=== PATIENT | male | born 1975 | race Caucasian/White ===

== ENCOUNTER 2021-11-06 16:39 | Observation (INO) | payer OTHER ==
--- OUTSIDE RECORDS SUMMARY | 2021-11-06 16:42 | XMS REPORT | Continuity of Care Document ---
:1975 Author Organization [facility] Address [address] [place] [address] Care Team Providers Name Role Phone ANNY JONES Attending Clinician Unavailable Lab, Adc Fam Pob I Attending Clinician Unavailable Anny Jones PA-C Attending Clinician Doctor Unassigned, [place] Attending Clinician Unavailable Payers Payer Name Policy Type Policy Number Effective Date Expiration Date Carmine HAMM II [id number] 2020 00:00:00 Problems This patient has no known problems. Allergies, Adverse Reactions, Alerts Allergy Allergy Status Severity Reaction(s) Onset Inactive Treating Comm ents Source Name Type Date Date Clinician NO KNOWN Drug Active Univers ALLERGIE Class ity of S [facility] Social History Social Habit Start Date Stop Date Quantity Comments Source History of Chews Tobacco University of tobacco use [facility] Sex Assigned At Universit y of [facility] Exposure to Yes [facility] SARS-CoV-2 [facility] (event) [place] Tobacco use and 2016-08-04 2016-08-04 Former user Universi ty of exposure 00:00:00 00:00:00 [facility] Alcohol intake 2016-08-04 2016-08-04 Current University 00:00:00 00:00:00 non-drinker of [facility] alcohol [place] (finding) Smoking Status Start Date Stop Date Source Never smoker [facility] Medications Ordered Filled Start Stop Current Ordering Indication Dosage Frequency Signature Comments Components Source Medication Medication Date Date Medication? Clinician (SIG) Name Name metoprolol Yes 50mg Take 50 mg U nivers tartrate 50 08-04 by mouth 2 it y of mg tablet 15:24: (two) [place] 43 times Medical daily. Branch CETIRIZINE Yes Take by Univ ers HCL (ZYRTEC 08-04 mouth ity of ORAL) 15:24: daily. [place] [address] Medical Branch ESOMEPRAZOL Yes Take by Uni vers E MAGNESIUM 6-28 mouth ity of (NEXIUM 15:24: daily. [place] ORAL) 43 Indication Medical s: OTC Branch [place]-3 Yes Take by Univers Fatty Acids 6-28 mouth ity of (FISH OIL) 15:24: daily. [place] 500 mg Cap 43 Medical Branch IBUPROFEN Yes Take by Unive rs (ADVIL 6-28 mouth as ity of ORAL) 15:24: needed. [place] [address] Medical Branch metoprolol Yes 50mg Take 50 mg U nivers tartrate 50 6-28 by mouth 2 it y of mg tablet 15:24: (two) [place] [address] times Medical daily. Branch CETIRIZINE Yes Take by Univ ers HCL (ZYRTEC 6-28 mouth ity of ORAL) 15:24: daily. [place] [address] Medical Branch ESOMEPRAZOL Yes Take by Uni vers E MAGNESIUM 6-28 mouth ity of (NEXIUM 15:24: daily. [place] ORAL) 43 Indication Medical s: OTC Branch [place]-3 Yes Take by Univers Fatty Acids 6-28 mouth ity of (FISH OIL) 15:24: daily. [place] 500 mg Cap Medical Branch IBUPROFEN Yes Take by Unive rs (ADVIL 6-28 mouth as ity of ORAL) 15:24: needed. [place] [address] Medical Branch aspirin 325 Yes 325mg Take 1 Uni vers mg tablet 6-07 tablet by ity o f 00:00: mouth [place] 00 daily. Medical Branch aspirin 325 Yes 325mg Take 1 Uni vers mg tablet 6-07 tablet by ity o f 00:00: mouth [place] 00 daily. Medical Branch Procedures This patient has no known procedures. Encounters Start End Encounter Admission Attending Care Care Encounter Source Date/Time Date/Time Type Type Clinicians Facility Department ID 2020-03-19 2020-03-19 Outpatient [facility] [id number] Univers 13:40:00 13:40:00 [id number] ity [facility]ly [facility] 2020-03-19 2020-03-19 Outpatient Phill JONES [facility] [id number] Univers 13:40:00 13:40:00 ANNY ity [facility]ly [facility] 2020-03-19 2020-03-19 Laboratory Lab, Adc Fam Pob I [facility] [id number] Univers 12:55:26 13:15:26 Only Anny Jones [facility] [id number] ity of [place] [id number] Epifanio as Professio [phone] [facility] [address] Branch [address] 2020-03-19 2020-03-19 Letter Doctor ANNY [id number] [facility] 00:00:00 00:00:00 (Out) Unassigned, [place] [id number] ity of [place] [facility] [id number] Epifanio as [phone] [place] [address] Branch Results This patient has no known results.
[2021-11-06] MEDS ORDERED: METOPROLOL TARTRATE 5 MG/5 ML INJ IV ONE (16:59)
[2021-11-06 17:24] LABS: Potassium 3.3 mmol/L (3.5-5.1); Troponin High Sensitivity 11.3 pg/mL (<58.9)
[2021-11-06 17:29] LABS: Absolute Lymphocytes (CBC) 3.2 K/uL (0.7-4.9); Hematocrit 48.2 % (39.6-49.0); Lymphocytes % 27.7 % (15.3-44.8); MPV 8.7 fL (7.6-11.3); RBC Red Blood Cell Count 4.96 M/uL (4.33-5.43)
--- NOTE | 2021-11-06 17:38 | RAD REPORT ---
EXAM DESCRIPTION: RAD - Chest Single View - 11/06/2021 5:30 pm CLINICAL HISTORY: PALPITATIONS COMPARISON: No comparisons FINDINGS: Lines: None. Lungs: No evidence of edema or pneumonia. Pleural: No significant pleural effusions or pneumothorax. Cardiac: The heart size is within normal limits. Mediastinum: Within normal limits. Bones: No acute fractures. Other: None IMPRESSION: No acute cardiopulmonary disease.
[2021-11-06] MEDS ORDERED: METOPROLOL TAR 50 MG TAB ONE (17:41)
[2021-11-06] MEDS ORDERED: ENOXAPARIN 100 MG/ML SYR SQ ONE (18:01)
--- NOTE | 2021-11-06 18:06 | EDPHYS ---
Physician Documentation [facility] Name: Alfredito Ramos Age: 46 yrs Sex: Male : 1975 Arrival Date: 11/06/2021 Time: 16:40 Bed 8 Private MD: Aron Campbell E ED Physician Zoran Méndez HPI: 11/06 18:58 This 46 yrs old Male presents to ER via Wheelchair with complaints of Dizziness, kdr Shortness Of Breath, afib. 18:58 Patient has a history of atrial fibrillation which he normally controls with 25 mg of kdr metoprolol daily. This morning when he awoke he noted the palpitations and that they continued through the day. Previously he has been able to resolve the palpitations with various exercises or activities. Unfortunately today that was not the case and so he presented here this afternoon and atrial fibrillation with rapid ventricular response. In general the patient has experienced this many times before and was not in some respects not concerned about it however he was started to have some episodes of dizziness today which was unusual.. Onset: The symptoms/episode began/occurred this morning, He noted the palpitations and irregular heart rate when he awoke this morning. Severity of symptoms: At their worst the symptoms were mild moderate in the emergency department the symptoms are unchanged. The patient has experienced similar episodes in the past, multiple times. The patient has not recently seen a physician. Historical: - Allergies: 16:46 No Known Allergies; ss - PMHx: 16:46 Atrial fibrillation; ss - PSHx: 16:46 gastric sleeve; ss - Immunization history:: Client reports having NOT received the Covid vaccine. - Social history:: Smoking status: Patient denies any tobacco usage or history of. Patient uses alcohol, on a daily basis. 2 drinks of whiskey nightly. ROS: 18:58 Constitutional: Negative for fever, chills, and weight loss, Eyes: Negative for injury, kdr pain, redness, and discharge, Neck: Negative for injury, pain, and swelling, Respiratory: Negative for shortness of breath, cough, wheezing, and pleuritic chest pain, Abdomen/GI: Negative for abdominal pain, nausea, vomiting, diarrhea, and constipation, Back: Negative for injury and pain, : Negative for injury, bleeding, discharge, and swelling, MS/Extremity: Negative for injury and deformity, Skin: Negative for injury, rash, and discoloration, Psych: Negative for depression, anxiety, suicide ideation, homicidal ideation, and hallucinations, Allergy/Immunology: Negative for hives, rash, and allergies, Endocrine: Negative for neck swelling, polydipsia, polyuria, polyphagia, and marked weight changes, Hematologic/Lymphatic: Negative for swollen nodes, abnormal bleeding, and unusual bruising. 18:58 Cardiovascular: Positive for palpitations, Negative for chest pain, edema, orthopnea. 18:58 Neuro: Positive for dizziness. Exam: 19:00 Constitutional: This is a well developed, well nourished patient who is awake, alert, kdr and in no acute distress. Head/Face: Normocephalic, atraumatic. Eyes: Pupils equal round and reactive to light, extra-ocular motions intact. Lids and lashes normal. Conjunctiva and sclera are non-icteric and not injected. Cornea within normal limits. Periorbital areas with no swelling, redness, or edema. Neck: Trachea midline, no thyromegaly or masses palpated, and no cervical lymphadenopathy. Supple, full range of motion without nuchal rigidity, or vertebral point tenderness. No Meningismus. Chest/axilla: Normal chest wall appearance and motion. Nontender with no deformity. No lesions are appreciated. Respiratory: Lungs have equal breath sounds bilaterally, clear to auscultation and percussion. No rales, rhonchi or wheezes noted. No increased work of breathing, no retractions or nasal flaring. Abdomen/GI: Soft, non-tender, with normal bowel sounds. No distension or tympany. No guarding or rebound. No evidence of tenderness throughout. Back: No spinal tenderness. No costovertebral tenderness. Full range of motion. Skin: Warm, dry with normal turgor. Normal color with no rashes, no lesions, and no evidence of cellulitis. MS/ Extremity: Pulses equal, no cyanosis. Neurovascular intact. Full, normal range of motion. Neuro: Awake and alert, GCS 15, oriented to person, place, time, and situation. Cranial nerves II-XII grossly intact. Motor strength 5/5 in all extremities. Sensory grossly intact. Cerebellar exam normal. Normal gait. Psych: Awake, alert, with orientation to person, place and time. Behavior, mood, and affect are within normal limits. 19:00 Cardiovascular: Rate: tachycardic, Rhythm: irregularly irregular, Pulses: no pulse deficits are appreciated, Heart sounds: normal, Edema: is not appreciated. Vital Signs: 16:44 Resp 22; Temp 98.3(O); Pulse Ox 100% on R/A; Weight 111.13 kg; Height 6 ft. 0 in. ss (182.88 cm); Pain 0/10; 16:46 BP 137 / 104; Pulse 171; Resp 20; Pulse Ox 99% on R/A; db 16:54 BP 153 / 97; Pulse 144; Resp 21; Pulse Ox 100% ; jl7 17:00 BP 148 / 94; Pulse 133; Resp 17; Pulse Ox 100% ; jl7 17:10 BP 133 / 99; Pulse 116; Resp 15; Pulse Ox 100% ; jl7 17:36 BP 117 / 93; Pulse 97; Resp 15; Pulse Ox 97% ; jl7 18:08 BP 140 / 98; Pulse 90; Resp 18; Pulse Ox 97% on R/A; db 18:30 BP 136 / 92; Pulse 60; Resp 18; Pulse Ox 97% ; db 20:14 BP 127 / 97; Pulse 87; Resp 18 S; Pulse Ox 98% on R/A; as6 16:44 Body Mass Index 33.23 (111.13 kg, 182.88 cm) ss MDM: 18:06 Patient medically screened. kdr 19:00 Data reviewed: vital signs, nurses notes, lab test result(s), EKG, radiologic studies. kdr Counseling: I had a detailed discussion with the patient and/or guardian regarding: the historical points, exam findings, and any diagnostic results supporting the discharge/admit diagnosis, lab results, radiology results, the need for further work-up and treatment in the hospital. 11/06 16:53 Order name: Basic Metabolic Panel kdr 11/06 16:53 Order name: CBC with Diff kdr 11/06 16:53 Order name: Troponin HS kdr 11/06 17:24 Order name: Basic Metabolic Panel; Complete Time: 17:47 EDMS 11/06 17:24 Order name: Troponin High Sensitivity; Complete Time: 17:47 EDMS 11/06 17:30 Order name: CBC with Automated Diff; Complete Time: 17:47 EDMS 11/06 16:53 Order name: XRAY Chest (1 view) kdr 11/06 17:38 Order name: RAD; Complete Time: 17:47 EDMS 11/06 18:17 Order name: SARS RAPID ss 11/06 18:27 Order name: Magnesium la1 11/06 18:27 Order name: TSH la1 11/06 18:27 Order name: T4 Free la1 11/06 18:27 Order name: BNP la1 11/06 18:51 Order name: SARS-COV-2 Antigen Rapid; Complete Time: 19:15 EDMS 11/06 16:53 Order name: EKG; Complete Time: 16:54 kdr 11/06 16:53 Order name: Cardiac monitoring; Complete Time: 17:00 kdr 11/06 16:53 Order name: EKG - Nurse/Tech; Complete Time: 17:00 kdr 11/06 16:53 Order name: IV Saline Lock; Complete Time: 16:59 kdr 11/06 16:53 Order name: Labs collected and sent; Complete Time: 17:01 kdr 11/06 16:53 Order name: O2 Per Protocol; Complete Time: 17:01 kdr 11/06 16:53 Order name: O2 Sat Monitoring; Complete Time: 17:01 kdr Administered Medications: 16:55 Drug: Metoprolol 5 mg Route: IVP; Site: right antecubital; jl7 17:00 Follow up: Response: No adverse reaction; Cardiac rhythm is unchanged jl7 17:03 Drug: Metoprolol 5 mg Route: IVP; Site: right antecubital; jl7 17:10 Drug: Metoprolol 5 mg Route: IVP; Site: right antecubital; jl7 17:10 Follow up: Response: No adverse reaction; Cardiac rhythm is unchanged jl7 17:43 Drug: Metoprolol TARTRATE 50 mg Route: PO; jl7 19:29 Follow up: Response: No adverse reaction jl7 18:00 Drug: Lovenox (enoxaparin) 1 mg/kg Route: Sub-Q; Site: abdomen; jl7 19:29 Follow up: Response: No adverse reaction jl7 18:36 Drug: Potassium Effervescent Tablet 50 mEq Route: PO; jl7 19:29 Follow up: Response: No adverse reaction jl7 Disposition Summary: 11/06/21 18:06 Hospitalization Ordered Hospitalization Status: Observation kdr Provider: Pawan Whelan kdr Location: Telemetry/MedSurg (observation) kdr Condition: Fair kdr Problem: an acute exacerbation kdr Symptoms: have improved kdr Bed/Room Type: Standard kdr Room Assignment: 422(11/06/21 19:45) cg Diagnosis - Persistent atrial fibrillation - With rapid ventricular response kdr Forms: - Medication Reconciliation Form kdr - SBAR form kdr Signatures: Dispatcher [employer] EDZoran Olvera MD MD kdr Madelyn Dacosta RN RN Estiven Hassan FNP-C [facility] Pauline Marcelino RN RN cg Leal, Jahala, RN RN jl7 Nkechi Jarrell RN RN db Corrections: (The following items were deleted from the chart) 19:45 18:06 kdr cg
--- NOTE | 2021-11-06 18:06 | ER ---
Nurse's Notes [facility] Name: Alfredito Ramos Age: 46 yrs Sex: Male : 1975 Arrival Date: 11/06/2021 Time: 16:40 Bed 8 Private MD: Aron Campbell E Diagnosis: Persistent atrial fibrillation-With rapid ventricular response Presentation: 11/06 16:44 Chief complaint: Patient states: heart palpitations that have been ongoing all day. Pt ss reports a hx of Afib and took his medication hoping he would come out of it, but is now experiencing dizziness when standing and shortness of breath at rest. Coronavirus screen: Client denies travel out of the [place] in the last 14 days. Ebola Screen: Patient denies exposure to infectious person. Patient denies travel to an Ebola-affected area in the 21 days before illness onset. Initial Sepsis Screen: Does the patient meet any 2 criteria? No. Patient's initial sepsis screen is negative. Does the patient have a suspected source of infection? No. Patient's initial sepsis screen is negative. Risk Assessment: Do you want to hurt yourself or someone else? Patient reports no desire to harm self or others. Onset of symptoms was November 06, 2021. 16:44 Method Of Arrival: Wheelchair ss 16:44 Acuity: CATHY 2 ss Historical: - Allergies: 16:46 No Known Allergies; ss - PMHx: 16:46 Atrial fibrillation; ss - PSHx: 16:46 gastric sleeve; ss - Immunization history:: Client reports having NOT received the Covid vaccine. - Social history:: Smoking status: Patient denies any tobacco usage or history of. Patient uses alcohol, on a daily basis. 2 drinks of whiskey nightly. Screenin:16 Abuse screen: Denies threats or abuse. Denies injuries from another. Nutritional db screening: No deficits noted. Tuberculosis screening: No symptoms or risk factors identified. Fall Risk None identified. No fall in past 12 months (0 pts). No secondary diagnosis (0 pts). IV access (20 points). Ambulatory Aid- None/Bed Rest/Nurse Assist (0 pts). Gait- Normal/Bed Rest/Wheelchair (0 pts) Mental Status- Oriented to own ability (0 pts). Total Watts Fall Scale indicates No Risk (0-24 pts). Assessment: 16:50 General: Appears distressed, uncomfortable, Behavior is cooperative, appropriate for db age, anxious. Pain: Denies pain. Neuro: Level of Consciousness is awake, alert, obeys commands, Oriented to person, place, time, situation, Appropriate for age. Cardiovascular: Reports palpitations, shortness of breath, diaphoretic. Rhythm is atrial fibrillation with rapid ventricular response. Respiratory: Airway is patent Respiratory effort is even, unlabored, Respiratory pattern is symmetrical, tachypnea. Derm: Skin is diaphoretic, Skin is normal, Skin temperature is warm. 16:58 Pain: Denies pain. Cardiovascular: Rhythm is atrial fibrillation. Respiratory: Airway db is patent Respiratory effort is unlabored, Breath sounds are clear. 17:30 Reassessment: No changes from previously documented assessment. Patient and/or family db updated on plan of care and expected duration. Pain level reassessed. Patient is alert, oriented x 3, equal unlabored respirations, skin warm/dry/pink. 17:40 Reassessment: Pt reports feeling better, decreased SOB, palpitations resolved, HR 97 jl7 and irregular, A. Fib noted with PVC's. ERD notified of HR and rhythm, VO for 50 mg Lopressor PO x1, pt medicated as ordered. Cardiovascular: Rhythm is atrial fibrillation With PVC's. 18:30 Reassessment: Patient appears in no apparent distress at this time. No changes from jl7 previously documented assessment. Patient and/or family updated on plan of care and expected duration. Pain level reassessed. Patient is alert, oriented x 3, equal unlabored respirations, skin warm/dry/pink. Patient states feeling better. Patient states symptoms have improved. Cardiovascular: Rhythm is atrial fibrillation with rapid ventricular response With PVC's. 19:28 General: Appears comfortable, Behavior is calm, cooperative. Pain: Denies pain. Neuro: aa9 Level of Consciousness is awake, alert, obeys commands, Oriented to person, place, time, situation. Cardiovascular: Patient's skin is warm and dry. Rhythm is atrial fibrillation. Respiratory: Airway is patent Respiratory effort is even, unlabored, Respiratory pattern is regular, symmetrical. Vital Signs: 16:44 Resp 22; Temp 98.3(O); Pulse Ox 100% on R/A; Weight 111.13 kg; Height 6 ft. 0 in. ss (182.88 cm); Pain 0/10; 16:46 BP 137 / 104; Pulse 171; Resp 20; Pulse Ox 99% on R/A; db 16:54 BP 153 / 97; Pulse 144; Resp 21; Pulse Ox 100% ; jl7 17:00 BP 148 / 94; Pulse 133; Resp 17; Pulse Ox 100% ; jl7 17:10 BP 133 / 99; Pulse 116; Resp 15; Pulse Ox 100% ; jl7 17:36 BP 117 / 93; Pulse 97; Resp 15; Pulse Ox 97% ; jl7 18:08 BP 140 / 98; Pulse 90; Resp 18; Pulse Ox 97% on R/A; db 18:30 BP 136 / 92; Pulse 60; Resp 18; Pulse Ox 97% ; db 20:14 BP 127 / 97; Pulse 87; Resp 18 S; Pulse Ox 98% on R/A; as6 16:44 Body Mass Index 33.23 (111.13 kg, 182.88 cm) ss Vitals: 16:46 Cardiac Rhythm Assessment Atrial fibrillation. db ED Course: 16:40 Patient arrived in ED. am2 16:40 Aron Campbell MD is Private Physician. am2 16:46 Triage completed. ss 16:46 Arm band placed on right wrist. ss 16:46 Patient has correct armband on for positive identification. Placed in gown. Bed in low jl7 position. Call light in reach. Side rails up X 1. Client placed on continuous cardiac and pulse oximetry monitoring. NIBP monitoring applied. 16:47 Nkechi Jarrell RN is Primary Nurse. db 16:53 Zoran Méndez MD is Attending Physician. kdr 16:56 Initial lab(s) drawn, by il, sent to lab. Inserted saline lock: 20 gauge in right dh3 antecubital area, using aseptic technique. Blood collected. 18:05 Pawan Whelan MD is Hospitalizing Provider. kdr 18:59 Primary Nurse role handed off by Nkechi Jarrell RN as6 18:59 Cory Slater RN is Primary Nurse. as6 20:19 No provider procedures requiring assistance completed. Patient admitted, IV remains in as6 place. Administered Medications: 16:55 Drug: Metoprolol 5 mg Route: IVP; Site: right antecubital; jl7 17:00 Follow up: Response: No adverse reaction; Cardiac rhythm is unchanged jl7 17:03 Drug: Metoprolol 5 mg Route: IVP; Site: right antecubital; jl7 17:10 Drug: Metoprolol 5 mg Route: IVP; Site: right antecubital; jl7 17:10 Follow up: Response: No adverse reaction; Cardiac rhythm is unchanged jl7 17:43 Drug: Metoprolol TARTRATE 50 mg Route: PO; jl7 19:29 Follow up: Response: No adverse reaction jl7 18:00 Drug: Lovenox (enoxaparin) 1 mg/kg Route: Sub-Q; Site: abdomen; jl7 19:29 Follow up: Response: No adverse reaction jl7 18:36 Drug: Potassium Effervescent Tablet 50 mEq Route: PO; jl7 19:29 Follow up: Response: No adverse reaction jl7 Medication: 17:16 VIS not applicable for this client. db Outcome: 18:06 Decision to Hospitalize by Provider. kdr 20:19 Admitted to Tele via wheelchair. as6 20:19 Condition: stable 20:19 Instructed on the need for admit. 20:23 Patient left the ED. aa9 Signatures: Zoran Méndez MD MD kdr Smirch, Shelby, RN RN ss Leeann Werner RN RN jl7 Christine Palma Keiko Correa [facility] Cory Slater RN RN as6 Ginny Rodriguez RN RN aa9 Nkechi Jarrell RN RN db Corrections: (The following items were deleted from the chart) 17:21 17:03 Metoprolol 5 mg IVP in left antecubital jl7 jl7
[2021-11-06] MEDS ORDERED: POTASSIUM 25 MEQ EFFERV TAB ONE (18:32)
[2021-11-06 18:51] LABS: SARS-CoV-2 Antigen Rapid Res Negative (Negative)
--- NOTE | 2021-11-06 19:19 | P.HP ---
Certification for Inpatient Patient admitted to: Observation With expected LOS: <2 Midnights Patient will require the following post-hospital care: None Practitioner: I am a practitioner with admitting privileges, knowledge of patient current condition, hospital course, and medical plan of care. Services: Services provided to patient in accordance with Admission requirements found in Title 42 Section 412.3 of the Code of Federal Regulations Patient History Date of Service: 11/06/21 Primary Care Provider: Dr. Abhijit Thomas Reason for admission: Afib RVR History of Present Illness: 46-year-old male with history of paroxysmal atrial fibrillation presents the emergency department for palpitations, shortness of breath. He reports he noticed that his A. fib started acting up this morning. Upon presentation to the emergency department patient was found to be in atrial fibrillation with rapid ventricular response with a rate around 170. Patient was evaluated in the emergency department and labs were significant for mild hypokalemia, mild renal insufficiency chest x-ray is negative for acute findings EKG showed A. fib with RVR. Patient was treated with IV Lopressor x3 as well as 50 mg of p.o. Lopressor he currently takes Lopressor 25 mg p.o. twice daily at home. He has responded well to beta-birgit therapy ED prior to resisted down observation for A. fib RVR. - Past Medical/Surgical History -: Paroxysmal A. fib -: Gastric sleeve Psychosocial/ Personal History: Patient works from home, lives at home with his . - Family History Mother -: Diabetes Father -: Hypertension - Social History Smoking Status: Never smoker Alcohol use: Yes CD- Drugs: No Caffeine use: Yes Place of Residence: Home Review of Systems 10-point ROS is otherwise unremarkable Respiratory: Shortness of Breath Cardiovascular: Palpitations Physical Examination - Physical Exam General: Alert, In no apparent distress, Oriented x3 HEENT: Atraumatic, PERRLA, Mucous membr. moist/pink, EOMI, Sclerae nonicteric Neck: Supple, 2+ carotid pulse no bruit, No LAD, Without JVD or thyroid abnormality Respiratory: Clear to auscultation bilaterally, Normal air movement Cardiovascular: Normal S1 S2, Irregular heart rate/rhythm (Irregularly irregular rhythmrate controlled) Capillary refill: <2 Seconds Gastrointestinal: Normal bowel sounds, No tenderness Musculoskeletal: No tenderness Integumentary: No rashes Neurological: Normal speech, Normal strength at 5/5 x4 extr, Normal tone, Normal affect - Studies Laboratory Data (last 24 hrs) 11/06/21 16:56: WBC 11.70 H, Hgb 16.4, Hct 48.2, Plt Count 294 11/06/21 16:56: Sodium 139, Potassium 3.3 L, BUN 16, Creatinine 1.37 H, Glucose 125 H Assessment and Plan - Plan Assessment: Acute on chronic paroxysmal atrial fibrillation with rapid ventricular response Hypokalemia Plan: Acute on chronic paroxysmal atrial fibrillation with rapid ventricular response: Currently rate controlled, monitor on telemetry we will obtain thyroid studies, magnesium level. Echocardiogram ordered and cardiology has been consulted. Patient currently taking Toprol 25 mg p.o. twice daily, this is been increased to 50 mg p.o. twice daily. VBS0AV3-GOSi score is currently 0, will give aspirin while in hospital. Appreciate further input from cardiology. Hypokalemia: Replaced, protocol in place. We will also check magnesium level and replace as necessary. DVT PPX: Lovenox Code status: Full Discharge Plan: Home Plan to discharge in: 24 Hours - Advance Directives Does patient have a Living Will: No Does patient have a Durable POA for Healthcare: No - Code Status/Comfort Care Code Status Assessed: Yes (Full code) Critical Care: No Time Spent Managing Pts Care (In Minutes): 55
[2021-11-06 21:04] LABS: Magnesium 1.9 mg/dL (1.8-2.4); Thyroid Stimulating Hormone 2.16 uIU/mL (0.360-3.740)
[2021-11-06] MEDS ORDERED: ONDANSETRON 4 MG/2 ML VIAL IV PRN (21:28)
[2021-11-06] MEDS ORDERED: MELATONIN 5 MG TABLET PO PRN (21:28)
[2021-11-06] MEDS ORDERED: ACETAMINOPHEN 500 MG TAB PO PRN (21:28)
[2021-11-06] MEDS: METOPROLOL TAR 50 MG TAB PO SCH (22:22)
[2021-11-06] MEDS: Ringers Lactate 1,000 ML IV SCH (22:23)
[2021-11-06 22:58] VITALS: BMI 31.8
[2021-11-07 04:55] VITALS: O2SAT 99
[2021-11-07 06:21] LABS: Absolute Lymphocytes (CBC) 3.1 K/uL (0.7-4.9); Hematocrit 41.8 % (39.6-49.0); Lymphocytes % 37.1 % (15.3-44.8); MCV 98.5 fL (80-100); MPV 8.3 fL (7.6-11.3); RBC Red Blood Cell Count 4.25 M/uL (4.33-5.43)
[2021-11-07 06:43] LABS: Albumin 3.5 g/dL (3.4-5.0); Bilirubin Total 1.3 mg/dL (0.2-1.0); Potassium 4.2 mmol/L (3.5-5.1); Protein, Total 6.6 g/dL (6.4-8.2)
[2021-11-07] MEDS: Ringers Lactate 1,000 ML IV SCH (08:15)
[2021-11-07] MEDS: METOPROLOL TAR 50 MG TAB PO SCH (08:56)
[2021-11-07 08:57] VITALS: BP 122/83
[2021-11-07 09:00] VITALS: TEMP 97.8
[2021-11-07] MEDS ORDERED: ENOXAPARIN 40 MG/0.4 ML SQ SCH (09:00)
[2021-11-07] MEDS ORDERED: ASPIRIN EC 81 MG TAB PO SCH (09:00)
[2021-11-07] MEDS ORDERED: INFLUENZA VACCINE (for 6+ mo) 0.5 ML DOSE IMVAC ONE (12:00)
--- NOTE | 2021-11-07 15:39 | P.DS ---
Admission Date: 11/06/21 Discharge Date: 11/07/21 Primary Care Provider: Dr. Abhijit Thomas Disposition: ROUTINE DISCHARGE Discharge Condition: GOOD Reason for Admission: Afib RVR Brief History of Present Illness: 46yo M, PMH: Paroxysmal A. fib. Presented to the ED due to palpitations, shortness of breath, and dizziness. Patient states he woke up and noticed that he was in atrial fibrillation, he subsequently went to mow his lawn, and afterwards is when he began to feel worse. He was found to be in atrial fibrillation with RVR, with a rate of [id number]. He was diagnosed with paroxysmal atrial fibrillation several years ago and has been prescribed metoprolol over the last year. He ran out and stopped taking his metoprolol 3 to 4 weeks ago. In the ED, he was given IV Lopressor x3 and p.o. Lopressor with some improvement of his heart rate. Also noted to have a mild DERICK. Hospital Course: Patient presented in Afib with RVR, heart rate up to 180s. He converted back to normal sinus rhythm after receiving IV and PO metoprolol. He had a mild DERICK secondary to dehydration and Afib, corrected back to normal overnight with gentle IV fluids. Patient has a history of paroxysmal afib and has been stable on Metoprolol 25mg ER for ~1 year until this event. He has not taken his metoprolol in several weeks which resulted in this episode. Patient was deemed stable for discharge home. He is prescribed metoprolol 50mg twice daily Follow up PCP within 1 week Cardiology, Dr. Lacey, in the next few weeks. Vital Signs/Physical Exam: Temp Pulse Resp BP Pulse Ox 97.8 F 71 18 122/83 96 11/07/21 08:00 11/07/21 08:56 11/07/21 08:00 11/07/21 08:56 11/07/21 08:00 General: Alert, In no apparent distress, Oriented x3 HEENT: EOMI, Sclerae nonicteric Neck: Supple, No LAD Respiratory: Clear to auscultation bilaterally, Normal air movement Cardiovascular: No edema, Regular rate/rhythm, No murmurs Gastrointestinal: Soft and benign, Non-distended, No tenderness Laboratory Data at Discharge: WBC 8.30 K/uL (4.3-10.9) 11/07/21 05:15 Hgb 14.4 g/dL (13.6-17.9) D 11/07/21 05:15 Hct 41.8 % (39.6-49.0) 11/07/21 05:15 Plt Count 228 K/uL (152-406) 11/07/21 05:15 Sodium 140 mmol/L (136-145) 11/07/21 05:15 Potassium 4.2 mmol/L (3.5-5.1) D 11/07/21 05:15 BUN 21 mg/dL (7-18) H 11/07/21 05:15 Creatinine 1.01 mg/dL (0.55-1.3) 11/07/21 05:15 Glucose 109 mg/dL (74-106) H 11/07/21 05:15 Magnesium 2.0 mg/dL (1.8-2.4) 11/07/21 05:15 Total Bilirubin 1.3 mg/dL (0.2-1.0) H 11/07/21 05:15 AST 22 U/L (15-37) 11/07/21 05:15 ALT 32 U/L (12-78) 11/07/21 05:15 Alkaline Phosphatase 57 U/L (45-117) 11/07/21 05:15 Home Medications: Chlorphen/Phenyleph/Ibuprofen [Advil Allergy-Congest Rlf Tab] 1 each PO PRN PRN 11/07/21 Metoprolol Tartrate [Lopressor*] 50 mg PO BID 30 Days #60 tab 11/07/21 New Medications: Metoprolol Tartrate [Lopressor*] 50 mg PO BID 30 Days #60 tab Physician Discharge Instructions: Patient presented in Afib with RVR, heart rate up to 180s. He converted back to normal sinus rhythm after receiving IV and PO metoprolol. He had a mild DERICK secondary to dehydration and Afib, corrected back to normal overnight with gentle IV fluids. Patient has a history of paroxysmal afib and has been stable on Metoprolol 25mg ER for ~1 year until this event. He has not taken his metoprolol in several weeks which resulted in this episode. Patient was deemed stable for discharge home. He is prescribed metoprolol 50mg twice daily Follow up PCP within 1 week Cardiology, Dr. Lacey, in the next few weeks. Followup: Aron Campbell MD [Primary Care Provider] - (Call to schedule appointment) Time spent managing pt's care (in minutes): 45
--- NOTE | 2021-11-08 07:45 | EKG ---
Test Date: 2021-11-06 Test Time: 16:58:14 Promotion Specialist: SHARON MEASUREMENT RESULTS: Intervals: Rate: 151 NV: QRSD: 76 QT: 284 QTc: 450 [place]: P: NV: QRS: 27 T: 9 INTERPRETIVE STATEMENTS: Atrial fibrillation with rapid ventricular response with premature ventricular or aberrantly conducted complexes Abnormal ECG Compared to ECG 11/06/2021 16:57:49 Ventricular premature complex(es) now present Electronically Signed On 11-08-21 07:43:52 CDT by Beka Padilla
--- NOTE | 2021-11-08 07:46 | EKG ---
Test Date: 2021-11-06 Test Time: 16:57:49 Wage Hand: SHARON MEASUREMENT RESULTS: Intervals: Rate: 144 IA: QRSD: 78 QT: 282 QTc: 436 [place]: P: IA: QRS: 29 T: 7 INTERPRETIVE STATEMENTS: afib/rvr No previous ECG available for comparison Electronically Signed On 11-08-21 07:44:14 CDT by Beka Padilla
--- NOTE | 2021-11-09 14:16 | EKG ---
Test Date: 2021-11-07 Test Time: 01:22:01 Tier Lift Truck Operator: RT-O MEASUREMENT RESULTS: Intervals: Rate: 66 MA: 154 QRSD: 98 QT: 386 QTc: 404 [place]: P: 31 MA: 154 QRS: 4 T: 13 INTERPRETIVE STATEMENTS: Normal sinus rhythm Minimal voltage criteria for LVH, may be normal variant Borderline ECG Compared to ECG 11/06/2021 16:58:14 Left ventricular hypertrophy now present Atrial fibrillation no longer present Ventricular premature complex(es) no longer present Electronically Signed On 11-09-21 14:13:59 CDT by Jesse Conteh
== END 2021-11-07 10:27 | disposition home or self-care (01) ==
LOC: ER 16:39 → ERHOLD 19:45 → 4TH 20:05
PROVIDERS: ADMIT Hospitalist; ATTEND Hospitalist
DX: I48.20 Chronic atrial fibrillation, unspecified (principal); E87.6 Hypokalemia; Z83.3 Family history of diabetes mellitus; Z82.49 Family history of ischemic heart disease and other diseases of the circulatory system; Z91.14 Patient's other noncompliance with medication regimen; Z20.822 Contact with and (suspected) exposure to COVID-19
CPT/HCPCS: 93005 ×3; 85025 ×2; 80048; 36415; 83735 ×2; 84443; 84484; 84439; 80053; 83880; 71045; 96372; 96374; 99285; 87811; J1650 ×2; J7120 ×2; G0378 ×3

== ENCOUNTER 2022-04-03 10:25 | Emergency (ER) | payer OTHER ==
--- OUTSIDE RECORDS SUMMARY | 2022-04-03 10:28 | XMS REPORT | Continuity of Care Document ---
:1975 Author Organization [facility] t Address [address] [place] [address] Care Team Providers Name Role Phone ANNY JONES Attending Clinician Unavailable Lab, Adc Fam Pob I Attending Clinician Unavailable Anny Jones PA-C Attending Clinician Doctor Unassigned, [place] Attending Clinician Unavailable Payers Payer Name Policy Type Policy Number Effective Date Expiration Date Carmine HAMM II [id number] 2020 00:00:00 Problems This patient has no known problems. Allergies, Adverse Reactions, Alerts Allergy Allergy Status Severity Reaction(s) Onset Inactive Treating Comm ents Source Name Type Date Date Clinician NO KNOWN Drug Active Univers ALLERGIE Class ity of [facility] Social History Social Habit Start Date Stop Date Quantity Comments Source History of Chews Tobacco Wrens of tobacco use [facility] Sex Assigned At Universit y of [facility] Exposure to Yes [facility] SARS-CoV-2 [facility] (event) [place] Tobacco use and 2016-08-04 2016-08-04 Former user Universi ty of exposure 00:00:00 00:00:00 [facility] Alcohol intake 2016-08-04 2016-08-04 Current University of 00:00:00 00:00:00 non-drinker of [facility] alcohol Branch (finding) Smoking Status Start Date Stop Date Source Never smoker [facility] Medications Ordered Filled Start Stop Current Ordering Indication Dosage Frequency Signature Comments Components Source Medication Medication Date Date Medication? Clinician (SIG) Name Name metoprolol Yes 50mg Take 50 mg U nivers tartrate 50 08-04 by mouth 2 it y of mg tablet 15:24: (two) [place] 43 times Medical daily. Branch CETIRIZINE Yes Take by Univ ers HCL (ZYRTEC 6-28 mouth ity of ORAL) 15:24: daily. [place] [address] Medical Branch ESOMEPRAZOL Yes Take by Uni vers E MAGNESIUM 6-28 mouth ity of (NEXIUM 15:24: daily. [place] ORAL) 43 Indication Medical s: OTC Branch Welcome-3 0 Yes Take by Univers Fatty Acids 6-28 mouth ity of (FISH OIL) 15:24: daily. [place] 500 mg Cap Medical Branch IBUPROFEN Yes Take by Unive rs (ADVIL 6-28 mouth as ity of ORAL) 15:24: needed. [address] Branch metoprolol Yes 50mg Take 50 mg U nivers tartrate 50 6-28 by mouth 2 it y of mg tablet 15:24: (two) [place] [address] times Medical daily. Branch CETIRIZINE Yes Take by Univ ers HCL (ZYRTEC 6-28 mouth ity of ORAL) 15:24: daily. [place] [address] Medical Branch ESOMEPRAZOL Yes Take by Uni vers E MAGNESIUM 6-28 mouth ity of (NEXIUM 15:24: daily. [place] ORAL) 43 Indication Medical s: OTC Branch Welcome-3 Yes Take by Univers Fatty Acids 6-28 mouth ity of (FISH OIL) 15:24: daily. [place] 500 mg Cap Medical Branch IBUPROFEN Yes Take by Unive rs (ADVIL 6-28 mouth as ity of ORAL) 15:24: needed. [address] Branch aspirin 325 Yes 325mg Take 1 Uni vers mg tablet 6-07 tablet by ity o f 00:00: mouth [place] 00 daily. Medical Branch aspirin 325 2016-0 Yes 325mg Take 1 Uni vers mg tablet 6-07 tablet by ity o f 00:00: mouth [place] 00 daily. Medical Branch Procedures This patient has no known procedures. Encounters Start End Encounter Admission Attending Care Care Encounter Source Date/Time Date/Time Type Type Clinicians Facility Department ID 2020-03-19 2020-03-19 Outpatient Phill JONES [facility] [id number] [facility] 13:40:00 13:40:00 ANNY ca [facility] 2020-03-19 2020-03-19 Laboratory Lab, Adc Fam Pob I [facility] [id number]. [id number] [facility] 12:55:26 13:15:26 Only JonesAnny [facility] [id number] ity of [place] [id number] Epifanio as Professio [phone] [facility] [address] Branch [address] 2020-03-19 2020-03-19 Letter Doctor ANNY [id number] [facility] 00:00:00 00:00:00 (Out) Unassigned, [place] [id number] ity of [place] [facility] [id number] Epifanio as [phone] [place] [address] Branch Results This patient has no known results.
[2022-04-03] MEDS ORDERED: NA CHLORIDE 0.9% 1,000 ML ONE (10:50)
[2022-04-03 10:58] LABS: Absolute Lymphocytes (CBC) 1.9 K/uL (0.7-4.9); Hematocrit 52.1 % (39.6-49.0); Lymphocytes % 29.5 % (15.3-44.8); MCV 96.8 fL (80-100); MPV 7.7 fL (7.6-11.3); RBC Red Blood Cell Count 5.38 M/uL (4.33-5.43)
[2022-04-03 10:59] LABS: Protime INR 0.95
[2022-04-03 11:14] LABS: Albumin 4.2 g/dL (3.4-5.0); Bilirubin Direct 0.4 mg/dL (0-0.2); Bilirubin Total 2.3 mg/dL (0.2-1.0); Potassium 3.7 mmol/L (3.5-5.1); Protein, Total 7.7 g/dL (6.4-8.2); Troponin High Sensitivity 10.4 pg/mL (<58.9)
--- NOTE | 2022-04-03 11:21 | RAD REPORT ---
EXAM DESCRIPTION: RAD - Chest Single View - 04/03/2022 11:06 am CLINICAL HISTORY: CHEST PAIN COMPARISON: Chest Single View dated 11/06/2021 FINDINGS: Lines: None. Lungs: No evidence of edema or pneumonia. Pleural: No significant pleural effusions or pneumothorax. Cardiac: The heart size is within normal limits. Mediastinum: Within normal limits. Bones: No acute fractures. Other: None IMPRESSION: No acute cardiopulmonary disease.
[2022-04-03 11:51] LABS: SARS-COV-2 RT PCR NEGATIVE (NEGATIVE)
--- NOTE | 2022-04-03 12:04 | ER ---
Nurse's Notes [facility] Name: Alfredito Ramos Age: 46 yrs Sex: Male : 1975 Arrival Date: 04/03/2022 Time: 10:27 Bed 5 Private MD: Aron Campbell E Diagnosis: Essential (primary) hypertension;Dizziness and giddiness Presentation: 04/03 10:29 Chief complaint: Patient states: "my blood pressure has been high for about 2 days", pt aa5 reports BP 175/128. Pt states "I've been feeling sluggish, having heart burn, a little lightheaded, and I haven't slept well in 3 days". Pt denies chest pain, reports he takes metoprolol and ASA for A-fib. 10:29 Coronavirus screen: At this time, the client does not indicate any symptoms associated aa5 with coronavirus-19. Ebola Screen: Patient denies travel to an Ebola-affected area in the 21 days before illness onset. Initial Sepsis Screen: Does the patient meet any 2 criteria? No. Patient's initial sepsis screen is negative. Does the patient have a suspected source of infection? No. Patient's initial sepsis screen is negative. Risk Assessment: Do you want to hurt yourself or someone else? Patient reports no desire to harm self or others. Onset of symptoms was March 2022. 10:29 Acuity: CATHY 2 aa5 10:29 Method Of Arrival: Ambulatory aa5 Historical: - Allergies: 10:41 No Known Allergies; aa5 - Home Meds: 10:41 metoprolol [Active]; Aspirin Oral [Active]; testosterone [Active]; aa5 - PMHx: 10:41 Atrial fibrillation; aa5 - PSHx: 10:41 gastric sleeve; aa5 - Immunization history:: Adult Immunizations unknown. - Social history:: Smoking status: Patient/guardian denies using tobacco. Screenin:55 [facility] ED Fall Risk Assessment (Adult) History of falling in the last 3 months, ph including since admission No falls in past 3 months (0 pts) Confusion or Disorientation No (0 pts) Intoxicated or Sedated No (0 pts) Impaired Gait No (0 pts) Mobility Assist Device Used No (0 pt) Altered Elimination No (0 pt) Score/Fall Risk Level 0 - 2 = Low Risk Oriented to surroundings, Maintained a safe environment. Abuse screen: Denies threats or abuse. Denies injuries from another. Nutritional screening: No deficits noted. Tuberculosis screening: No symptoms or risk factors identified. Assessment: 10:54 General: Appears in no apparent distress. comfortable, well groomed, Behavior is calm, ph cooperative, appropriate for age, Reports chills for 2-3 days, fatigue for 2-3 days. Pain: Denies pain. Neuro: Level of Consciousness is awake, alert, obeys commands, Oriented to person, place, time, situation, Reports dizziness. Cardiovascular: Capillary refill < 3 seconds in bilateral fingers Patient's skin is warm and dry. Respiratory: Airway is patent Respiratory effort is even, unlabored, Respiratory pattern is regular, symmetrical. Derm: Skin is healthy with good turgor, Skin is pink, warm \\T\\ dry. Musculoskeletal: Circulation, motion, and sensation intact. Range of motion: intact in all extremities. Vital Signs: 10:29 BP 183 / 118; Pulse 77; Resp 18 S; Temp 99.6(O); Pulse Ox 99% on R/A; Weight 115.67 kg aa5 (R); Height 6 ft. 0 in. (182.88 cm) (R); 11:43 BP 152 / 104; Pulse 77; Resp 18; Pulse Ox 98% on R/A; ph 12:30 BP 139 / 102; Pulse 78; Resp 18; Temp 98.0; Pulse Ox 99% on R/A; ph 10:29 Body Mass Index 34.58 (115.67 kg, 182.88 cm) aa5 ED Course: 10:27 Patient arrived in ED. mr 10:28 Aron Campbell MD is Private Physician. mr 10:29 Arm band placed on Patient placed in an exam room, on a stretcher. aa5 10:32 David Chin MD is Attending Physician. bianka 10:40 Triage completed. aa5 10:45 Kathrin White, BETTY is Primary Nurse. ph 10:50 Inserted saline lock: 20 gauge in right antecubital area, using aseptic technique. eb 10:51 COVID-19/FLU A+B Sent. ph 10:51 EKG done, by greenhouse technician. reviewed by David Chin MD. eb 10:52 Basic Metabolic Panel Sent. eb 10:52 CBC with Diff Sent. eb 10:52 LFT's Sent. eb 10:52 Magnesium Sent. eb 10:53 NT PRO-BNP Sent. eb 10:53 PT-INR Sent. eb 10:53 Troponin HS Sent. eb 10:53 Lipid Profile Sent. eb 10:53 Lipase Sent. eb 10:55 Patient has correct armband on for positive identification. Bed in low position. Call ph light in reach. Side rails up X 1. Client placed on continuous cardiac and pulse oximetry monitoring. NIBP monitoring applied. Door closed. Noise minimized. Warm blanket given. 10:58 XRAY Chest (1 view) In Process Unspecified. EDKY 12:03 Aron Campbell MD is Referral Physician. [facility] 12:03 Carolina Lacey MD is Referral Physician. [facility] 12:31 No provider procedures requiring assistance completed. IV discontinued, intact, ph bleeding controlled, No redness/swelling at site. Pressure dressing applied. Administered Medications: 10:54 Drug: NS 0.9% 1000 ml Route: IV; Rate: 1 bolus; Site: right antecubital; ph 12:30 Follow up: Response: No adverse reaction; IV Status: Completed infusion; IV Intake: ph 1000ml 11:59 Not Given (Other Intervention Used): Norvasc (amlodipine) 10 mg PO once ph 12:21 Drug: Metoprolol TARTRATE 50 mg Route: PO; aa5 12:30 Follow up: Response: No adverse reaction ph 12:22 Drug: Lisinopril 20 mg Route: PO; aa5 12:30 Follow up: Response: No adverse reaction ph Medication: 10:55 VIS not applicable for this client. ph Intake: 12:30 IV: 1000ml; Total: 1000ml. ph Outcome: 12:03 Discharge ordered by . [facility] 12:31 Discharged to home ambulatory, with significant other. ph 12:31 Condition: good 12:31 Discharge instructions given to patient, significant other, Instructed on discharge instructions, follow up and referral plans. medication usage, Demonstrated understanding of instructions, follow-up care, medications, Prescriptions given X 2. 12:31 Patient left the ED. ph Signatures: Dispatcher [employer] David Manuel MD MD cha Rivera, Mary mr Calderon, Audri, RN RN aa5 Kathrin White RN RN Jessica Courtney
--- NOTE | 2022-04-03 12:04 | EDPHYS ---
Physician Documentation [facility] Name: Alfredito Ramos Age: 46 yrs Sex: Male : 1975 Arrival Date: 04/03/2022 Time: 10:27 Bed 5 Private MD: Aron Campbell E ED Physician David Chin HPI: 04/03 11:51 This 46 yrs old Male presents to ER via Ambulatory with complaints of High bianka Blood Pressure, Dizziness, Fatigue. 11:51 The patient has elevated blood pressure and discovered this at home. Onset: The bianka symptoms/episode began/occurred 2 day(s) ago. Modifying factors: The symptoms are aggravated by activity, The symptoms are alleviated by remaining still. Associated signs and symptoms: The patient has no apparent associated signs or symptoms. Severity of symptoms: At its worst the blood pressure was moderate, in the emergency department the blood pressure is unchanged. The patient has experienced similar episodes in the past, several times. Historical: - Allergies: 10:41 No Known Allergies; aa5 - Home Meds: 10:41 metoprolol [Active]; Aspirin Oral [Active]; testosterone [Active]; aa5 - PMHx: 10:41 Atrial fibrillation; aa5 - PSHx: 10:41 gastric sleeve; aa5 - Immunization history:: Adult Immunizations unknown. - Social history:: Smoking status: Patient/guardian denies using tobacco. ROS: 11:56 Constitutional: Negative for fever, chills, and weight loss, Eyes: Negative for injury, bianka pain, redness, and discharge, ENT: Negative for injury, pain, and discharge, Neck: Negative for injury, pain, and swelling, Cardiovascular: Negative for chest pain, palpitations, and edema, Respiratory: Negative for shortness of breath, cough, wheezing, and pleuritic chest pain, Abdomen/GI: Negative for abdominal pain, nausea, vomiting, diarrhea, and constipation, Back: Negative for injury and pain, : Negative for injury, bleeding, discharge, and swelling, MS/Extremity: Negative for injury and deformity, Skin: Negative for injury, rash, and discoloration, Psych: Negative for depression, anxiety, suicide ideation, homicidal ideation, and hallucinations, Allergy/Immunology: Negative for hives, rash, and allergies, Endocrine: Negative for neck swelling, polydipsia, polyuria, polyphagia, and marked weight changes, Hematologic/Lymphatic: Negative for swollen nodes, abnormal bleeding, and unusual bruising. 11:56 Neuro: Positive for dizziness, weakness. Exam: 11:56 Constitutional: This is a well developed, well nourished patient who is awake, alert, bianka and in no acute distress. Head/Face: Normocephalic, atraumatic. Eyes: Pupils equal round and reactive to light, extra-ocular motions intact. Lids and lashes normal. Conjunctiva and sclera are non-icteric and not injected. Cornea within normal limits. Periorbital areas with no swelling, redness, or edema. ENT: Nares patent. No nasal discharge, no septal abnormalities noted. Tympanic membranes are normal and external auditory canals are clear. Oropharynx with no redness, swelling, or masses, exudates, or evidence of obstruction, uvula midline. Mucous membranes moist. Neck: Trachea midline, no thyromegaly or masses palpated, and no cervical lymphadenopathy. Supple, full range of motion without nuchal rigidity, or vertebral point tenderness. No Meningismus. Chest/axilla: Normal chest wall appearance and motion. Nontender with no deformity. No lesions are appreciated. Cardiovascular: Regular rate and rhythm with a normal S1 and S2. No gallops, murmurs, or rubs. Normal PMI, no JVD. No pulse deficits. Respiratory: Lungs have equal breath sounds bilaterally, clear to auscultation and percussion. No rales, rhonchi or wheezes noted. No increased work of breathing, no retractions or nasal flaring. Abdomen/GI: Soft, non-tender, with normal bowel sounds. No distension or tympany. No guarding or rebound. No evidence of tenderness throughout. Back: No spinal tenderness. No costovertebral tenderness. Full range of motion. Male : Normal genitalia with no discharge or lesions. Skin: Warm, dry with normal turgor. Normal color with no rashes, no lesions, and no evidence of cellulitis. MS/ Extremity: Pulses equal, no cyanosis. Neurovascular intact. Full, normal range of motion. Neuro: Awake and alert, GCS 15, oriented to person, place, time, and situation. Cranial nerves II-XII grossly intact. Motor strength 5/5 in all extremities. Sensory grossly intact. Cerebellar exam normal. Normal gait. Psych: Awake, alert, with orientation to person, place and time. Behavior, mood, and affect are within normal limits. Vital Signs: 10:29 BP 183 / 118; Pulse 77; Resp 18 S; Temp 99.6(O); Pulse Ox 99% on R/A; Weight 115.67 kg aa5 (R); Height 6 ft. 0 in. (182.88 cm) (R); 11:43 BP 152 / 104; Pulse 77; Resp 18; Pulse Ox 98% on R/A; ph 12:30 BP 139 / 102; Pulse 78; Resp 18; Temp 98.0; Pulse Ox 99% on R/A; ph 10:29 Body Mass Index 34.58 (115.67 kg, 182.88 cm) aa5 MDM: 10:32 Patient medically screened. bianka 11:56 Differential diagnosis: hypertensive crisis, Malignant HTN. Differential Diagnosis bianka altered mental status, sepsis. Data reviewed: vital signs, nurses notes, lab test result(s), EKG, radiologic studies, plain films. Consideration of Admission/Observation Escalation of care including admission/observation considered. I considered the following discharge prescriptions or medication management in the emergency department Medications were administered in the Emergency Department. See MAR. Test considered but Not performed: CT: no ct head. Care significantly affected by the following chronic conditions: Hypertension, a fib. 04/03 10:34 Order name: Basic Metabolic Panel; Complete Time: 11:50 [facility] 04/03 10:34 Order name: CBC with Diff; Complete Time: 11:50 04/03 10:34 Order name: LFT's; Complete Time: 11:50 04/03 10:34 Order name: Magnesium; Complete Time: 11:50 04/03 10:34 Order name: NT PRO-BNP; Complete Time: 11:50 04/03 10:34 Order name: PT-INR; Complete Time: 11:50 04/03 10:34 Order name: Troponin HS; Complete Time: 11:50 04/03 10:34 Order name: XRAY Chest (1 view); Complete Time: 11:50 [facility] 04/03 10:34 Order name: Lipase; Complete Time: 11:50 04/03 10:34 Order name: Lipid Profile; Complete Time: 11:50 04/03 10:45 Order name: COVID-19/FLU A+B; Complete Time: 12:04 04/03 10:34 Order name: EKG; Complete Time: 10:35 [facility] 04/03 10:34 Order name: Cardiac monitoring; Complete Time: 10:52 [facility] 04/03 10:34 Order name: EKG - Nurse/Tech; Complete Time: 10:52 [facility] 04/03 10:34 Order name: IV Saline Lock; Complete Time: 10:52 [facility] 04/03 10:34 Order name: Labs collected and sent; Complete Time: 10: [facility] 04/03 10:34 Order name: O2 Per Protocol; Complete Time: 10:52 [facility] 04/03 10:34 Order name: O2 Sat Monitoring; Complete Time: 10:52 [facility] Administered Medications: 10:54 Drug: NS 0.9% 1000 ml Route: IV; Rate: 1 bolus; Site: right antecubital; ph 12:30 Follow up: Response: No adverse reaction; IV Status: Completed infusion; IV Intake: ph 1000ml 11:59 Not Given (Other Intervention Used): Norvasc (amlodipine) 10 mg PO once ph 12:21 Drug: Metoprolol TARTRATE 50 mg Route: PO; aa5 12:30 Follow up: Response: No adverse reaction ph 12:22 Drug: Lisinopril 20 mg Route: PO; aa5 12:30 Follow up: Response: No adverse reaction ph Disposition Summary: 04/03/22 12:03 Discharge Ordered Location: Home bianka Problem: new bianka Symptoms: have improved bianka Condition: Stable bianka Diagnosis - Essential (primary) hypertension bianka - Dizziness and giddiness bianka Followup: bianka - With: - When: 2 - 3 days - Reason: Recheck today's complaints, Continuance of care, Re-evaluation by your physician Followup: bianka - With: - When: 2 - 3 days - Reason: Recheck today's complaints, Continuance of care, Re-evaluation by your physician Discharge Instructions: - Discharge Summary Sheet bianka - Dizziness bianka - Hypertension, Adult bianka - Hypertension, Adult, [id number] bianka - How to Take Your Blood Pressure, [id number] bianka - Aspirin and Your Heart bianka - Dizziness, [id number] bianka - Managing Your Hypertension bianka Forms: - Medication Reconciliation Form bianka - Thank You Letter bianka - Antibiotic Education bianka - Prescription Opioid Use bianka Prescriptions: - Toprol XL 50 mg Oral Tablet - take 1 tablet by ORAL route once daily; 20 tablet; Refills: 0, Product bianka Selection Permitted - Lisinopril 10 mg Oral Tablet - take 1 tablet by ORAL route once daily; 20 tablet; Refills: 0, Product bianka Selection Permitted Signatures: Dispatcher [employer] EDDavid Lowery MD MD cha Calderon, Audri, RN RN aa5 Kathrin White RN RN ph Corrections: (The following items were deleted from the chart) 10:49 10:35 SARS-COV-2 Antigen Rapid+I.LAB.BRZ ordered. EDMN EDMS
[2022-04-03] MEDS ORDERED: METOPROLOL TAR 50 MG TAB ONE (12:05)
[2022-04-03] MEDS ORDERED: lisinopriL 20 MG TAB ONE (12:05)
[2022-04-03] MEDS ORDERED: lisinopriL 10 MG TAB ONE (12:15)
[2022-04-03 12:38] VITALS: BP 139/102; TEMP 98; O2SAT 99
--- NOTE | 2022-04-05 18:45 | EKG ---
Test Date: 2022-04-03 Test Time: 10:37:41 Cleaning Matron: PATRICIA MEASUREMENT RESULTS: Intervals: Rate: 76 IA: 142 QRSD: 86 QT: 360 QTc: 405 [place]: P: 42 IA: 142 QRS: 8 T: 21 INTERPRETIVE STATEMENTS: Normal sinus rhythm Normal ECG Compared to ECG 11/07/2021 01:22:01 Left ventricular hypertrophy no longer present Electronically Signed On 04-05-22 18:41:58 [employer]VENUE CYCLE CONSULTANT by Jesse Conteh
== END 2022-04-03 12:31 | disposition home or self-care (01) ==
LOC: ER 10:25
DX: I10 Essential (primary) hypertension (principal); I48.91 Unspecified atrial fibrillation; Z20.822 Contact with and (suspected) exposure to COVID-19
CPT/HCPCS: 96361; 93005; 85025; 80048; 36415; 83735; 85610; 80061; 80076; 84484; 83690; 83880; 0240U; 71045; 96360; 99284; J7030

== ENCOUNTER → 2023-04-05 | Emergency (ER) | payer BC, OTHER ==
--- OUTSIDE RECORDS SUMMARY | 2023-04-05 18:41 | XMS REPORT | Continuity of Care Document ---
Author Name Unknown Address [address] [facility] [address] [place] [id number] [facility] thconnect Address [address] [facility] [address] [place] [address] Care Team Providers Care [employer] Management System Operator Name Role Phone ANNY ROGERS Attending Clinician Unavailable Lab, Adc Fam Pob I Attending Clinician Unavailab Anny Martínez PA-C Attending Clinician [phone] Doctor Unassigned, [place] Attending Clinician U navailable Payers Payer Name Policy Type Policy Number Effective Date Expirati on Date Source [employer] II [id number] 2020 00:00:00 Allergies, Adverse Reactions, Alerts Allergy Name Allergy Type Status Severity Reaction(s) Onset Date Inactive Date Treating Clinician Comments Source NO KNOWN ALLERGIE S Drug Class Active [facility] Social History Social Habit Start Date Stop Date Quantity Comments Source History of tobacco use Chews Tobacco [facility] Sex Assigned At [facility] Exposure to SARS-CoV-2 (event) Yes [facility] Tobacco use and exposure 2016-08-04 00:00:00 2016-08-04 00:00:00 Former user [facility] Alcohol intake 2016-08-04 00:00:00 2016-08-04 00:00:00 Current non-drinker of alcohol (finding) [facility] Smoking Status Start Date Stop Date Source Never smoker [facility] Medications Ordered Medication Name Filled Medication Name Start Date Stop Date Current Medication? Ordering Clinician Indication Dosage Frequency Signature (SIG) Comments Components Source metoprolol tartrate 50 mg tablet 08-04 15:24: 43 Yes 50mg Take 50 mg by mouth 2 (two) times daily. [facility] CETIRIZINE HCL (ZYRTEC ORAL) 08-04 15:24: 43 Yes Take by mouth daily. [facility] ESOMEPRAZOL E MAGNESIUM (NEXIUM ORAL) 08-04 15:24: 43 Yes Take by mouth daily. Indication s: OTC [facility] [place]-3 Fatty Acids (FISH OIL) 500 mg Cap 08-04 15:24: 43 Yes Take by mouth daily. [facility] IBUPROFEN (ADVIL ORAL) 08-04 15:24: 43 Yes Take by mouth as needed. [facility] metoprolol tartrate 50 mg tablet 08-04 15:24: 43 Yes 50mg Take 50 mg by mouth 2 (two) times daily. [facility] CETIRIZINE HCL (ZYRTEC ORAL) 08-04 15:24: 43 Yes Take by mouth daily. [facility] ESOMEPRAZOL E MAGNESIUM (NEXIUM ORAL) 08-04 15:24: 43 Yes Take by mouth daily. Indication s: OTC [facility] [place]-3 Fatty Acids (FISH OIL) 500 mg Cap 08-04 15:24: 43 Yes Take by mouth daily. [facility] IBUPROFEN (ADVIL ORAL) 08-04 15:24: 43 Yes Take by mouth as needed. [facility] aspirin 325 mg tablet 07-14 00:00: 00 Yes 325mg Take 1 tablet by mouth daily. [facility] aspirin 325 mg tablet 07-14 00:00: 00 Yes 325mg Take 1 tablet by mouth daily. [facility] Encounters Start Date/Time End Date/Time Encounter Type Admission Type Attending Clinicians Care Facility Care Department Encounter ID Source 2020-03-19 13:40:00 2020-03-19 13:40:00 Outpatient ANNY KYLE [facility] [id number] [facility] 2020-03-19 12:55:26 2020-03-19 13:15:26 Laboratory Only Lab, Adc Fam Luis Angelb Anny Gurrola [facility] Office [facility] [id number]..[id number] [facility] 2020-03-19 00:00:00 2020-03-19 00:00:00 Letter (Out) Doctor Unassigned, [place] [facility] 1..[id number] [facility]
[2023-04-05 19:38] LABS: Absolute Lymphocytes (CBC) 2.4 K/uL (0.7-4.9); Hematocrit 46.5 % (39.6-49.0); Lymphocytes % 33.6 % (15.3-44.8); MCV 101.2 fL (80-100); MPV 7.8 fL (7.6-11.3); Platelets 250 thou/uL (152-406); RBC Red Blood Cell Count 4.59 M/uL (4.33-5.43)
--- NOTE | 2023-04-05 20:12 | RAD REPORT ---
EXAM DESCRIPTION: CT - Head Brain Wo Cont - 04/05/2023 8:01 pm CLINICAL HISTORY: DIZZINESS COMPARISON: No comparisons TECHNIQUE: All CT scans are performed using dose optimization technique as appropriate and may inclu de automated exposure control or mA/KV adjustment according to patient size. FINDINGS: No intracranial hemorrhage, hydrocephalus or extra-axial fluid collection.No areas of brai n edema or evidence of midline shift. The paranasal sinuses and mastoids are clear. The calvarium is intact. IMPRESSION: No acute intracranial abnormality.
[2023-04-05 21:08] LABS: Albumin 3.6 g/dL (3.4-5.0); Bilirubin Direct 0.3 mg/dL (0-0.2); Bilirubin Indirect, Calculated 1.1 mg/dL (0.2-0.8); Bilirubin Total 1.4 mg/dL (0.2-1.0); Magnesium 2.1 mg/dL (1.6-2.4); Protein, Total 7.1 g/dL (6.4-8.2); Troponin High Sensitivity 4.7 pg/mL (<58.9)
[2023-04-05 21:14] LABS: Thyroid Stimulating Hormone 1.69 uIU/mL (0.358-3.740)
--- NOTE | 2023-04-05 21:37 | EDPHYS ---
Physician Documentation [facility] Name: Alfredito Ramos Age: 47 yrs Sex: Male : 1975 Arrival Date: 04/05/2023 Time: 18:38 Bed DX1 Private MD: Jared Lainez ED Physician Bear Brunner HPI: 04/05 20:05 This 47 yrs old Male presents to ER via Ambulatory with complaints of sp4 Dizziness. 20:07 Historical: Allergies: 10:41 No Known Allergies; Home Meds: 10:41 metoprolol; Aspirin sp4 Oral; testosterone; aa5 PMHx: 10:41 Atrial fibrillation; aa5 PSHx: 10:41 gastric sleeve. 20:31 This is a very pleasant 47-year-old male with history of hypertension on sp4 hydrochlorothiazide, carvedilol, amlodipine / Losartan, also medication for ADHD Focalin, also on testosterone replacement. Patient is seeing Dr. Lacey with [facility], presents with dizziness and near syncopal episodes starting Tuesday also associated with some blood pressure elevation 159/92. Patient reports current dizziness and lightheadedness without vertigo.. No weakness that is localized. Historical: - Allergies: 18:54 No Known Allergies; as6 - PMHx: 18:54 Atrial fibrillation; Hypertensive disorder; as6 - PSHx: 18:54 gastric sleeve; as6 - Immunization history:: Adult Immunizations up to date. - Social history:: Smoking status: Patient denies any tobacco usage or history of. - Family history:: not pertinent. ROS: 20:31 Constitutional: Negative for fever, chills, and weight loss, positive dizziness and sp4 positive near syncope 20:31 All other systems are negative, Exam: 20:31 Constitutional: This is a well developed, well nourished patient who is awake, alert, sp4 and in no acute distress. Head/Face: Normocephalic, atraumatic. Eyes: Pupils equal round and reactive to light, extra-ocular motions intact. Lids and lashes normal. Conjunctiva and sclera are not injected. Cornea within normal limits. Periorbital areas with no swelling, redness, or edema. ENT: Nares patent. No nasal discharge, no septal abnormalities noted. Tympanic membranes are normal and external auditory canals are clear. Oropharynx with no redness, swelling, or masses, exudates, or evidence of obstruction, uvula midline. Mucous membranes moist. Neck: Trachea midline, no thyromegaly or masses palpated, and no cervical lymphadenopathy. Supple, full range of motion without nuchal rigidity, or vertebral point tenderness. Chest/axilla: Normal chest wall appearance and motion. Nontender with no deformity. No lesions are appreciated. Cardiovascular: Regular rate and rhythm with a normal S1 and S2. No gallops, murmurs, or rubs. Normal PMI, no JVD. No pulse deficits. Respiratory: Lungs have equal breath sounds bilaterally, clear to auscultation and percussion. No rales, rhonchi or wheezes noted. No increased work of breathing, no retractions or nasal flaring. Abdomen/GI: Soft, with normal bowel sounds. No distension or tympany. No guarding or rebound. No evidence of tenderness throughout. Back: No spinal tenderness. No costovertebral tenderness. Skin: Warm, dry with normal turgor. Normal color with no rashes, no lesions, and no evidence of cellulitis. MS/ Extremity: Pulses equal, no cyanosis. Neurovascular intact. Full, normal range of motion. Neuro: Awake and alert, GCS 15, oriented to person, place, time, and situation. Cranial nerves II-XII grossly intact. Motor strength 5/5 in all extremities. Sensory grossly intact. Psych: Awake, alert, with orientation to person, place and time. Behavior, mood, and affect are within normal limits 20:31 ECG was reviewed by the Attending Physician. EKG at 191 reveals normal sinus rhythm at rate of 72 overall normal EKG Vital Signs: 18:53 BP 146 / 92; Pulse 67; Resp 18; Temp 98.1(TE); Pulse Ox 99% on R/A; Weight 104.33 kg as6 (R); Height 6 ft. 0 in. (R); Pain 0/10; 20:31 BP 137 / 91 Sitting; Pulse 62 LA; ap3 20:31 BP 135 / 87 Standing; Pulse 71 LA; ap3 18:53 Body Mass Index 31.19 (104.33 kg, 182.88 cm) as6 18:53 Pain Scale: Adult as6 NIH Stroke Scale Scores: 20:31 NIHSS Score: 0 sp4 Lyndon Coma Score: 20:31 Eye Response: spontaneous(4). Motor Response: obeys commands(6). Verbal Response: sp4 oriented(5). Total: 15. MDM: 18:43 Patient medically screened. sp3 21:39 Differential diagnosis: cardiac arrhythmia, generalized weakness, head injury, sp4 hypovolemia, idiopathic dizziness, near-syncope. Data reviewed: vital signs, nurses notes, old medical records, lab test result(s), EKG, radiologic studies, CT scan. Consideration of Admission/Observation Escalation of care including admission/observation considered. 21:39 ED course: Patient has normal neurologic exam and normal workup negative orthostatic sp4 vital signs. Will recommend visit with his manufacturing tech Dr. Madera for outpatient echocardiogram and carotid Doppler also Holter monitor . . 04/05 19:07 Order name: Basic Metabolic Panel; Complete Time: 21:14 3 04/05 19:07 Order name: CBC with Diff; Complete Time: 20:31 04/05 19:07 Order name: LFT's; Complete Time: 21:14 04/05 19:07 Order name: Magnesium; Complete Time: 21:14 04/05 19:07 Order name: Troponin HS; Complete Time: 21:14 04/05 20:15 Order name: TSH; Complete Time: 21:26 04/05 20:15 Order name: T4 Free; Complete Time: 21:26 04/05 20:15 Order name: BNP; Complete Time: 21:26 04/05 19:07 Order name: CT Head Brain wo Cont; Complete Time: 20:31 04/05 19:07 Order name: EKG; Complete Time: 19:08 04/05 19:07 Order name: EKG - Nurse/Tech; Complete Time: 19:30 04/05 19:07 Order name: IV Saline Lock; Complete Time: 19:30 04/05 19:07 Order name: Labs collected and sent; Complete Time: 19:30 04/05 20:15 Order name: Orthostatic Blood Pressure; Complete Time: 20:33 sp4 EC:31 Rate is 72 beats/min. Rhythm is regular, Normal Sinus Rhythm. QRS [place] is Normal. [place] sp4 interval is normal. QRS interval is normal. QT interval is normal. No Q waves. T waves are Normal. No ST changes noted. Clinical impression: Normal ECG. Interpreted by me. Reviewed by me. Administered Medications: No medications were administered Disposition Summary: 04/05/23 21:36 Discharge Ordered Problem: new sp4 Symptoms: have improved sp4 Condition: Stable sp4 Diagnosis - Dizziness and giddiness sp4 - Syncope Near sp4 Followup: sp4 - With: Private Physician - When: 7 - 10 days - Reason: Continuance of care Discharge Instructions: - Discharge Summary Sheet sp4 - Near-Syncope sp4 Forms: - Patient Portal Instructions sp4 NIH Stroke Scale - NIH Stroke Score Date: 04/05/2023 Time: 20:31 Total Score = 0 10. Dysarthria (speech clarity - read or repeat words) - 0(Normal) 11. Extinction and Inattention (visual/tactile/auditory/spatial/personal) - 0(No abnormality) 1a. Level of Consciousness (LOC) - 0(Alert) 1b. Level of Consciousness (LOC) (Month \T\ Age) - 0(Both) 1c. LOC Commands (Open \T\ Closes Eyes/Ventilation Worker) - 0(Both) 2. Best Gaze (Lateral Gaze Paresis) - 0(Normal) 3. Visual Field Loss - 0(No visual loss) 4. Facial Palsy - 0(Normal) 5a. Left Arm: Motor (10-second hold) - 0(No drift) 5b. Right Arm: Motor (10-second hold) - 0(No drift) 6a. Left Leg: Motor (5-second hold - always test supine) - 0(No drift) 6b. Right Leg: Motor (5-second hold - always test supine) - 0(No drift) 7. Limb Ataxia (finger/nose \T\ heel/carlton - test with eyes open) - 0(Absent) 8. Sensory Loss (pinprick arms/legs/face) - 0(Normal) 9. Best Language: Aphasia (description/naming/reading) - 0(No aphasia) Initials: sp4 Signatures: Dispatcher [employer] EDNichole Johansen MD MD sp3 Cory Slater, RN RN as6 Bear Brunner MD MD sp4
--- NOTE | 2023-04-05 21:37 | ER ---
Nurse's Notes [facility] Name: Alfredito Ramos Age: 47 yrs Sex: Male : 1975 Arrival Date: 04/05/2023 Time: 18:38 Bed DX1 Private MD: Jared Lainez Diagnosis: Dizziness and giddiness;Syncope Near Presentation: 04/05 18:53 Chief complaint: Patient states: "I've been having dizzy spells since Tuesday and they as6 aren't going away". Coronavirus screen: At this time, the client does not indicate any symptoms associated with coronavirus-19. Ebola Screen: No symptoms or risks identified at this time. Initial Sepsis Screen: Does the patient meet any 2 criteria? No. Patient's initial sepsis screen is negative. Does the patient have a suspected source of infection? No. Patient's initial sepsis screen is negative. Risk Assessment: Do you want to hurt yourself or someone else? Patient reports no desire to harm self or others. Onset of symptoms was April 01, 2023. 18:53 Acuity: CATHY 3 as6 18:53 Method Of Arrival: Ambulatory as6 Historical: - Allergies: 18:54 No Known Allergies; as6 - PMHx: 18:54 Atrial fibrillation; Hypertensive disorder; as6 - PSHx: 18:54 gastric sleeve; as6 - Immunization history:: Adult Immunizations up to date. - Social history:: Smoking status: Patient denies any tobacco usage or history of. - Family history:: not pertinent. Screenin:42 [facility] ED Fall Risk Assessment (Adult) History of falling in the last 3 months, ap3 including since admission No falls in past 3 months (0 pts). Abuse screen: Denies threats or abuse. Nutritional screening: No deficits noted. Tuberculosis screening: No symptoms or risk factors identified. Assessment: 19:57 General: Appears in no apparent distress. comfortable, Behavior is calm, cooperative. jb4 Pain: Denies pain. Neuro: Level of Consciousness is awake, alert, obeys commands, Oriented to person, place, time, situation. Cardiovascular: Patient's skin is warm and dry. Respiratory: Airway is patent Respiratory effort is even, unlabored, Respiratory pattern is regular, symmetrical. GI: No signs and/or symptoms were reported involving the gastrointestinal system. : No signs and/or symptoms were reported regarding the genitourinary system. EENT: No signs and/or symptoms were reported regarding the EENT system. Derm: Skin is intact, Skin is pink, warm \\T\\ dry. Musculoskeletal: Circulation, motion, and sensation intact. Range of motion: intact in all extremities. Vital Signs: 18:53 BP 146 / 92; Pulse 67; Resp 18; Temp 98.1(TE); Pulse Ox 99% on R/A; Weight 104.33 kg as6 (R); Height 6 ft. 0 in. (R); Pain 0/10; 20:31 BP 137 / 91 Sitting; Pulse 62 LA; ap3 20:31 BP 135 / 87 Standing; Pulse 71 LA; ap3 18:53 Body Mass Index 31.19 (104.33 kg, 182.88 cm) as6 18:53 Pain Scale: Adult as6 Herbert Coma Score: 20:31 Eye Response: spontaneous(4). Motor Response: obeys commands(6). Verbal Response: sp4 oriented(5). Total: 15. NIH Stroke Scale Scores: 20:31 NIHSS Score: 0 sp4 ED Course: 18:41 Patient arrived in ED. rg4 18:41 Jared Lainez MD is Private Physician. rg4 18:43 Nichole Kate MD is Attending Physician. sp3 18:54 Triage completed. as6 18:54 Arm band placed on. as6 19:31 Inserted saline lock: 20 gauge in right antecubital area, using aseptic technique. as6 Blood collected. 20:04 CT Head Brain wo Cont In Process Unspecified. EDMS 20:05 Attending Physician role handed off by Nichole Kate MD sp4 20:05 Bear Brunner MD is Attending Physician. sp4 21:35 Bear Brunner MD is Referral Physician. sp4 21:42 Provided Education on: discharge instructions. ap3 21:42 Patient has correct armband on for positive identification. ap3 21:42 No provider procedures requiring assistance completed. IV discontinued, intact, ap3 bleeding controlled, No redness/swelling at site. Pressure dressing applied. Administered Medications: No medications were administered Medication: 21:42 VIS not applicable for this client. ap3 Outcome: 21:36 Discharge ordered by . sp4 21:42 Discharged to home ambulatory, with family, ap3 21:42 Condition: good 21:42 Discharge instructions given to patient, Instructed on discharge instructions, follow up and referral plans. Demonstrated understanding of instructions, follow-up care, 21:43 Patient left the ED. ap3 NIH Stroke Scale - NIH Stroke Score Date: 04/05/2023 Time: 20:31 Total Score = 0 10. Dysarthria (speech clarity - read or repeat words) - 0(Normal) 11. Extinction and Inattention (visual/tactile/auditory/spatial/personal) - 0(No abnormality) 1a. Level of Consciousness (LOC) - 0(Alert) 1b. Level of Consciousness (LOC) (Month \\T\\ Age) - 0(Both) 1c. LOC Commands (Open \\T\\ Closes Eyes/Assembler For Puller Over Hand) - 0(Both) 2. Best Gaze (Lateral Gaze Paresis) - 0(Normal) 3. Visual Field Loss - 0(No visual loss) 4. Facial Palsy - 0(Normal) 5a. Left Arm: Motor (10-second hold) - 0(No drift) 5b. Right Arm: Motor (10-second hold) - 0(No drift) 6a. Left Leg: Motor (5-second hold - always test supine) - 0(No drift) 6b. Right Leg: Motor (5-second hold - always test supine) - 0(No drift) 7. Limb Ataxia (finger/nose \\T\\ heel/carlton - test with eyes open) - 0(Absent) 8. Sensory Loss (pinprick arms/legs/face) - 0(Normal) 9. Best Language: Aphasia (description/naming/reading) - 0(No aphasia) Initials: sp4 Signatures: Dispatcher [employer] Louann Girard rg4 Rikki Brewer, RN RN jb4 Christine Padilla RN RN ap3 Nichole Kate MD MD sp3 Cory Slater RN RN as6 Bear Brunner MD MD sp4
[2023-04-05 22:11] VITALS: BP 135/87; TEMP 98.1; O2SAT 99
== END ==
LOC: ER 18:38
DX: R42 Dizziness and giddiness (principal); R55 Syncope and collapse; I10 Essential (primary) hypertension; I48.91 Unspecified atrial fibrillation
CPT/HCPCS: 36415; 70450; 80048; 80076; 83735; 83880; 84439; 84443; 84484; 85025; 93005